=== PATIENT | female | born 1950 | race American Indian/Alaskan Native ===

== ENCOUNTER 2016-11-02 13:17 | Outpatient (CLI) | payer BC ==
--- NOTE | 2016-11-02 15:53 | Mammography Report ---
BILATERAL DIGITAL SCREENING MAMMOGRAM with CAD : 11/02/16 13:17:00 CLINICAL: Routine screening. COMPARISON:10/01/15 FINDINGS: The breasts are heterogeneously dense, which may obscure small masses.A few scattered bilateral calcifications with benign morphology. No mass, architectural distortion or suspicious calcifications. IMPRESSION: No mammographic evidence of malignancy. BI-RADS CATEGORY: 2 -- Benign RECOMMENDATION: Routine mammographic screening in one year. COMMENT: Patient follow-up letters are generated by our [employer] application.
== END 2016-11-02 13:18 | disposition home or self-care (01) ==
LOC: SPVWC 13:17
PROVIDERS: ATTEND Internal Medicine
DX: Z12.31 Encounter for screening mammogram for malignant neoplasm of breast (principal)
CPT/HCPCS: 77067; G0202

== ENCOUNTER 2017-04-27 14:00 | Outpatient (CLI) | payer BC ==
--- NOTE | 2017-04-27 16:46 | XRay Report ---
XRAY BILATERAL KNEE THREE VIEWS EACH: 04/27/17 14:00:00 CLINICAL: Bilateral knee pain. Osteoarthritis. FINDINGS: Right: Mild osteopenia. No fracture or dislocation. Medial joint space narrowing with small osteophytes. Widening of the lateral joint space with small osteophytes. An accessory ossicle in the proximal lateral collateral ligament. Moderate patellofemoral joint osteoarthritis. No joint effusion. Normal soft tissues. Left: Mild osteopenia. No fracture or dislocation. Medial joint space narrowing with small osteophytes. Mild widening of the lateral joint space with small osteophytes. Patellofemoral joint osteoarthritis. No joint effusion. An accessory ossicle in the proximal lateral collateral ligament.Normal soft tissues. IMPRESSION: Moderate bilateral osteoarthritis with greater involvement of the medial joint spaces.
== END 2017-04-27 14:01 | disposition home or self-care (01) ==
LOC: SPVIMAG 14:00
PROVIDERS: ATTEND Internal Medicine
DX: M17.0 Bilateral primary osteoarthritis of knee (principal); M85.861 Other specified disorders of bone density and structure, right lower leg; M85.862 Other specified disorders of bone density and structure, left lower leg

== ENCOUNTER 2017-08-04 10:30 | Outpatient (CLI) | payer BC ==
--- NOTE | 2017-08-09 11:01 | Vascular Lab Report ---
LOWER EXTREMITY ARTERIAL DUPLEX: REASON FOR EXAM: Peripheral arterial disease. COMMENTS ON THE RIGHT: Triphasic waveforms are seen proximally. Triphasic waveforms are seen distally. No significant velocity gradients are identified. No significant plaque is identified. Findings are consistent with normal perfusion. Findings are consistent with the ability to heal distal wounds. COMMENTS ON THE LEFT: A limited study was done the left lower extremity pain triphasic waveforms are noted at the posterior tibial and anterior tibial artery. Flow velocities are within normal limits. IMPRESSION: RIGHT: Essentially normal arterial flow. LEFT:Essentially normal arterial flow.
== END 2017-08-04 10:31 | disposition home or self-care (01) ==
LOC: VAS 10:30
PROVIDERS: ATTEND Internal Medicine
DX: M79.604 Pain in right leg (principal); M79.605 Pain in left leg; M79.89 Other specified soft tissue disorders

== ENCOUNTER 2017-11-10 12:52 | Outpatient (CLI) | payer BC ==
--- NOTE | 2017-11-13 08:36 | Mammography Report ---
BILATERAL DIGITAL SCREENING MAMMOGRAM with CAD : 11/10/17 12:52:00 CLINICAL: Routine screening. COMPARISON:11/02/16 FINDINGS: The breasts are heterogeneously dense, which may obscure small masses.A few scattered bilateral calcifications with benign morphology are unchanged compared to previous exams. No mass, architectural distortion or suspicious calcifications. IMPRESSION: No mammographic evidence of malignancy. BI-RADS CATEGORY: 2 -- Benign RECOMMENDATION: Routine mammographic screening in one year. COMMENT: Patient follow-up letters are generated by our [employer] application.
== END 2017-11-10 12:53 | disposition home or self-care (01) ==
LOC: SPVWC 12:52
PROVIDERS: ATTEND Internal Medicine
DX: Z12.31 Encounter for screening mammogram for malignant neoplasm of breast (principal)
CPT/HCPCS: 77067

== ENCOUNTER 2018-05-04 13:57 | Outpatient (CLI) | payer BC, MEDICARE ==
--- NOTE | 2018-05-04 15:55 | XRay Report ---
XRAY CHEST TWO VIEWS: 05/04/18 13:57:00 CLINICAL: Cough. COMPARISON: 10/07/15 FINDINGS: Normal heart and pulmonary vasculature. The lungs are normally expanded and clear.The bones and soft tissues are unremarkable. IMPRESSION: Normal chest.
== END 2018-05-04 13:58 | disposition home or self-care (01) ==
LOC: SPVIMAG 13:57
PROVIDERS: ATTEND Internal Medicine
DX: R05 Cough (principal)
CPT/HCPCS: 71046

== ENCOUNTER 2018-11-15 13:17 | Outpatient (CLI) | payer MEDICARE ==
--- NOTE | 2018-11-15 16:48 | Mammography Report ---
BILATERAL DIGITAL SCREENING MAMMOGRAM WITH CAD INDICATION: Routine screening mammography. TECHNIQUE: Digital bilateral 2D mammography was obtained in the craniocaudal and mediolateral obliq ue projections. This examination was interpreted with the benefit of Computer-Aided Detection analysi s. COMPARISON: 11/10/2017 FINDINGS: Breast Density: The breasts are heterogeneously dense, which may obscure small masses. No mass, architectural distortion or suspicious calcifications. IMPRESSION:No mammographic evidence of malignancy. BI-RADS Category 1: Negative. No mammographic evidence of malignancy. Recommend routine screening m ammography in one year. A "normal" or negative report should not discourage follow up or biopsy of a clinically significant f inding. A written summary of these findings will be mailed to the patient. The patient will be entered into a mammography reporting system which will generate a reminder letter for the patient's next appointmen t at the appropriate interval. The [employer] recommends yearly mammograms starting at age 40 and continuing as l alejandra as a woman is in good health. Breast MRI is recommended for women with an approximate 20-25% or greater lifetime risk of breast cancer, including women with a strong family history of breast or ova sathish cancer or who have been treated for Hodgkin's disease. Signer Name: Franki Villegas MD Signed: 11/15/2018 4:44 PM Workstation Name: [id number]
== END 2018-11-15 13:18 | disposition home or self-care (01) ==
LOC: SPVWC 13:17
PROVIDERS: ATTEND Internal Medicine
DX: Z12.31 Encounter for screening mammogram for malignant neoplasm of breast (principal)
CPT/HCPCS: 77067